=== PATIENT | female | born 1985 | race American Indian/Alaskan Native ===

== ENCOUNTER 2019-10-20 20:50 | Emergency (ER) | payer MEDICAID, OTHER ==
[~2019-10-20] VITALS: Ht 167.6 cm; Wt 90.9 kg
[~2019-10-20 20:50] MED LIST: CARI350T PO; CLIN150C8 PO; IBUPROFEN 600MG PO
[2019-10-20 21:02] VITALS: BP 130/76
[2019-10-20] MEDS ORDERED: ondansetron 4mg rapidly disintigrating tab PO ONE (22:15)
[2019-10-20] MEDS ORDERED: ketorolac trometh inj. 60 MG/2 ML VIAL IM ONE (22:15)
[2019-10-20] MEDS ORDERED: amoxicillin 250mg capsule PO ONE (22:15)
[2019-10-20] MEDS ORDERED: acetaminophen 325mg tablet PO ONE (22:15)
[2019-10-20] MEDS ORDERED: AMOX500C2 PO (22:27)
[2019-10-20] MEDS ORDERED: IBUP-1984 PO (22:27)
== END 2019-10-20 22:37 | disposition home or self-care (01) ==
LOC: ER 20:51
DX: K03.81 Cracked tooth (principal); K04.7 Periapical abscess without sinus; R22.0 Localized swelling, mass and lump, head; F12.90 Cannabis use, unspecified, uncomplicated; Z79.2 Long term (current) use of antibiotics; Z79.899 Other long term (current) drug therapy
CPT/HCPCS: 96372; 99284; J1885

== ENCOUNTER 2020-06-06 18:37 | Emergency (ER) | payer MEDICAID ==
[~2020-06-06] VITALS: Ht 167.6 cm; Wt 77.0 kg
[2020-06-06 18:42] VITALS: BP 131/75
[2020-06-06] MEDS ORDERED: DOXY100C43 PO (19:58)
== END 2020-06-06 20:04 | disposition home or self-care (01) ==
LOC: ER 18:38
DX: L02.416 Cutaneous abscess of left lower limb (principal); L03.116 Cellulitis of left lower limb; F12.90 Cannabis use, unspecified, uncomplicated; Z79.2 Long term (current) use of antibiotics
CPT/HCPCS: 99283

== ENCOUNTER 2021-04-13 17:27 | Emergency (ER) | payer MEDICAID | END 2021-04-13 20:10 | disposition left against medical advice (07) | LOC: ER 17:28 | DX: Z53.21 Procedure and treatment not carried out due to patient leaving prior to being seen by health care provider (principal) ==

== ENCOUNTER 2021-08-21 23:16 | Emergency (ER) | payer MEDICAID ==
[~2021-08-21] VITALS: Ht 167.6 cm; Wt 90.9 kg
[2021-08-22] MEDS ORDERED: diphenhydrAMINE 25mg capsule PO ONE (00:05)
[2021-08-22 00:12] VITALS: BP 107/61
== END 2021-08-22 00:21 | disposition home or self-care (01) ==
LOC: ER 23:17
DX: F41.9 Anxiety disorder, unspecified (principal); F12.90 Cannabis use, unspecified, uncomplicated; Z79.2 Long term (current) use of antibiotics
CPT/HCPCS: 93005; 99283; Q0163

== ENCOUNTER 2021-12-27 02:07 | Emergency (ER) | payer MEDICAID ==
[~2021-12-27] VITALS: Ht 167.6 cm; Wt 83.2 kg
[2021-12-27 02:38] VITALS: BP 143/83
[2021-12-27] MEDS ORDERED: AMOX-117 PO (03:18)
[2021-12-27] MEDS: ibuprofen tablet 400 MG TABLET PO ONE (03:33)
[2021-12-27] MEDS: amox tr/potassium clavulanate 875/125mg TAB PO ONE (03:33)
[2021-12-27] MEDS: acetaminophen 325mg tablet PO ONE (03:34)
== END 2021-12-27 03:51 | disposition home or self-care (01) ==
LOC: ER 02:08
DX: H66.91 Otitis media, unspecified, right ear (principal); F12.10 Cannabis abuse, uncomplicated; Z79.899 Other long term (current) drug therapy
CPT/HCPCS: 99284